=== PATIENT | male | born 1995 | race Caucasian/White ===

== ENCOUNTER 2016-04-02 10:44 | Emergency (ER) | payer MEDICAID ==
[~2016-04-02] VITALS: Ht 167.6 cm; Wt 58.7 kg
[2016-04-02 11:06] VITALS: BP 118/57
--- NOTE | 2016-04-02 12:42 | NUR ---
PATIENT PRESENTS TO ED WITH C/O ANXIETY , NO APPETITE, "WITHDRAWING FROM METH"--LAST USE 02/26/2016, DENIES N/V/D; SKIN IS PINK/WARM/DRY; AAOX4 WITH EVEN AND STEADY GAIT; LUNGS CLEAR BL; HR EVEN AND REGULAR; PT DENIES ANY FEVER, CP, SOB, OR COUGH AT THIS TIME; PATIENT STATES PAIN OF 0/10 AT THIS TIME; VSS; PATIENT POSITIONED FOR COMFORT; HOB ELEVATED; BEDRAILS UP X2; BED DOWN. ER MD MADE AWARE OF PT STATUS.
--- NOTE | 2016-04-02 12:43 | NUR ---
PT TO BED 6.
--- NOTE | 2016-04-02 13:33 | NUR ---
Patient discharged with v/s stable. Written and verbal after care instructions given and explained. Patient alert, oriented and verbalized understanding of instructions. Ambulatory with steady gait. All questions addressed prior to discharge. ID band removed. Patient advised to follow up with PMD. Rx of ATARAX 25MG given. Patient educated on indication of medication including possible reaction and side effects. Opportunity to ask questions provided and answered.
[2016-04-02 13:34] VITALS: BP 122/60
== END 2016-04-02 13:33 | disposition home or self-care (01) ==
LOC: MED 10:44
DX: F41.9 Anxiety disorder, unspecified (principal)

== ENCOUNTER 2016-05-28 18:32 | Emergency (ER) | payer MEDICAID ==
[~2016-05-28] VITALS: Ht 167.6 cm; Wt 59.5 kg
[2016-05-28 18:35] VITALS: BP 122/69
--- NOTE | 2016-05-28 19:53 | NUR ---
TO ER BED 6
--- NOTE | 2016-05-28 19:58 | NUR ---
21/M PRESENT TO ER C/O HEADACHE x ONE WEEK. PT STATES NAUSEA BUT NO VOMITTING/DIARRHEA AND HAS LOST HIS APPETITE. PT STATES NO INJURY OR TRAUMA. NO S/S OF DISTRESS NOTED AT THE MOMENT. ER MD MADE AWARE.
--- NOTE | 2016-05-28 20:00 | NUR ---
Patient being evaluated by physician at bedside.
[2016-05-28] MEDS ORDERED: IBUPROFEN 600 MG TAB PO ONE ×2 (20:05→21:25)
[2016-05-28 21:45] VITALS: BP 115/72
--- NOTE | 2016-05-28 21:45 | NUR ---
Patient discharged with v/s stable. Written and verbal after care instructions given and explained. Patient alert, oriented and verbalized understanding of instructions. Ambulatory with steady gait. All questions addressed prior to discharge. ID band removed. Patient advised to follow up with PMD THIS WK OR RETURN TO ER IF CONDITION WORSENS. Rx of MOTRIN given. Patient educated on indication of medication including possible reaction and side effects. Opportunity to ask questions provided and answered.
== END 2016-05-28 21:45 | disposition home or self-care (01) ==
LOC: MED 18:32
DX: R51 Headache (principal); M54.2 Cervicalgia; R07.89 Other chest pain; R06.02 Shortness of breath; D64.9 Anemia, unspecified

== ENCOUNTER 2016-08-02 14:32 | Emergency (ER) | payer MEDICAID ==
[~2016-08-02] VITALS: Ht 167.6 cm; Wt 56.7 kg
[2016-08-02 14:39] VITALS: BP 129/64
--- NOTE | 2016-08-02 14:55 | NUR ---
ACCOUNTING METHODS ANALYST AT BEDSIDE
--- NOTE | 2016-08-02 15:00 | NUR ---
PATIENT PRESENTS TO ED C/O ANXIETY X1 WEEK. PT STATES PCP GAVE HIM HYDROXYZINE 50MG FOR HIS ANXIETY, BUT HIS ANXIOUSNESS HAS GOTTEN WORSE. DENIES N/V/D; SKIN IS PINK/WARM/DRY; AAOX4 WITH EVEN AND STEADY GAIT; LUNGS CLEAR BL; HR EVEN AND REGULAR; PT DENIES ANY FEVER, CP, SOB, OR COUGH AT THIS TIME; PATIENT STATES PAIN OF 0/10 AT THIS TIME; PATIENT POSITIONED FOR COMFORT; HOB ELEVATED; BEDRAILS UP X2; BED DOWN. PT AAO
--- NOTE | 2016-08-02 15:17 | NUR ---
PT CALM, NO DISTRESS NOTED, NO VOMITTING NOTED, SKIN WARM TO TOUCH RESP. EVEN AND UNLABORED, GIRLFRIEND AT BEDSIDE, NO AGITATION NOTED.
--- NOTE | 2016-08-02 16:18 | NUR ---
INFORMED ROBIN PT IS ASKING HOW LONG WILL THEY WAIT
--- NOTE | 2016-08-02 16:27 | NUR ---
POLICE AT BEDSIDE
[2016-08-02 17:21] VITALS: BP 127/72
--- NOTE | 2016-08-02 17:21 | NUR ---
Patient discharged with v/s stable. Written and verbal after care instructions given and explained. Patient verbalized understanding. Ambulatory with steady gait. All questions addressed prior to discharge. Advised to follow up with PMD.
== END 2016-08-02 17:21 | disposition home or self-care (01) ==
LOC: MED 14:32
DX: F41.9 Anxiety disorder, unspecified (principal)
CPT/HCPCS: 99284